=== PATIENT | male | born 1990 | race Caucasian/White ===

== ENCOUNTER 2023-06-27 16:53 | Emergency (ER) | payer OTHER, SELFPAY ==
--- NOTE | ~2023-06-27 | XR_ITS ---
EXAMINATION: XR CHEST CLINICAL INFORMATION: Chest pain, cough and fever COMPARISON: None available. TECHNIQUE: 2 views of the chest were obtained. FINDINGS: No significant abnormality is noted involving the heart, lungs, mediastinum, bony thorax or soft tissues. XR/XR chest 2V IMPRESSION: Unremarkable examination.
--- NOTE | ~2023-06-27 | US_ITS ---
EXAMINATION: US ABDOMEN LIMITED CLINICAL INFORMATION: Right upper quadrant pain. COMPARISON: None available. TECHNIQUE: Real-time imaging of the right upper quadrant abdominal viscera.: Doppler exam used. FINDINGS: PANCREAS: Pancreatic head and body are normal. The tail is obscured by bowel gas. LIVER: Normal. The liver is normal in size. The liver contour is normal. Parenchymal echogenicity is normal. No focal hepatic lesion. There is no intrahepatic biliary duct dilatation seen. GALLBLADDER: Normal. The gallbladder is physiologically distended without evidence of stones, sludge, polyps, wall thickening or pericholecystic fluid. COMMON BILE DUCT: Normal in caliber measuring 0.2 cm in diameter. RIGHT KIDNEY: Normal. No hydronephrosis. No renal calculi or focal parenchymal lesions. The kidney measures 11.2 cm in maximum dimension. FREE FLUID: None. US/US abdomen limited IMPRESSION: Normal ultrasound right upper quadrant.
[2023-06-27 17:21] VITALS: BP 120/82; PULSE 127; RESP 18; TEMP 38.3; O2SAT 99; BMI 25.5
--- NOTE | 2023-06-27 17:23 | ED.GENADULT ---
HPI - General Adult General Chief complaint: Nausea/Vomiting/Diarrhea Stated complaint: fever, vomiting, body aches, weakness Time Seen by Provider: 06/27/23 22:59 Source: patient Mode of arrival: ambulatory Limitations: no limitations History of Present Illness HPI narrative: Patient is a 32-year-old male who presents to the emergency department for evaluation. He reports since last night he has been experiencing body aches, subjective fevers, nausea, 3 episodes of bilious vomiting, multiple episodes of loose watery diarrhea occurring every 1-2 hours. He also reports malodorous urine. He reports a history of similar symptoms in the past that lasted a couple of days before self-resolving. He states it typically occurs on the weekend so he has never sought evaluation as he is able to rest and his symptoms subside. He is requesting to be discharged home and would like a work note, as he feels as though he can rest and things will improve. He denies any known sick contacts. He denies any chest pain, shortness of breath, back pain, hematuria, hematochezia, melena Related Data Allergies Allergy/AdvReac Type Severity Reaction Status Date / Time No Known Allergies Allergy Verified 06/27/23 17:26 Review of Systems Review of Systems: Yes all other systems are reviewed and are negative PMFSH Past Medical History Attestation statement: The following information was validated with the patient. Source: old records reviewed Social History Social History Smoked in Last 30 Days: No Use of substances other than those prescribed or required for medical reasons: No Advance Directives: No Advance Directives Information Provided: No Do you have a plan to hurt others: No Plan Physical Exam ED Vital Signs: Vital Signs - 24 hr 06/27/23 17:21 06/27/23 20:03 06/27/23 23:00 Temperature 101 F H 99.1 F 98.8 F Pulse Rate 127 H 109 H 108 H Respiratory Rate 18 18 20 Blood Pressure 120/82 136/83 118/75 Pulse Oximetry 99 100 99 Oxygen Delivery Method Room Air Room Air Room Air BMI result Body Mass Index 25.5 Appearance: Alert.?Oriented to person, place and time. No acute distress.?Normal affect. Eyes: Pupils equal, round and reactive to light.? ENT: Pharynx normal.?? Neck: Normal inspection.? Neck supple.?? CVS: Heart sounds normal. Normal heart rate and rhythm.? Pulses normal.?? Respiratory: No respiratory distress.? Lung sounds clear to auscultation bilaterally?? Abdomen: Soft with right upper quadrant epigastric tenderness upon palpation. Normoactive bowel sounds. Skin: Skin warm and dry.? Normal skin color.? Extremities: No lower extremity edema.? Neuro: Moves all extremities spontaneously. Sensation intact bilaterally. CN II-XII intact. No focal neuro deficits. Ambulates with normal steady gait. Course Course Course Narrative: RME- 32-year-old male presents for evaluation of cough, flu-like symptoms as well as vomiting. Symptoms started last night. Plan for labs, chest x-ray, viral swabs Medications Administered Discontinued Medications Generic Name Dose Route Start Last Admin Trade Name Freq PRN Reason Stop Dose Admin Acetaminophen 975 mg 06/27/23 17:23 06/27/23 17:26 Acetaminophen 325 Mg Tablet PO 06/27/23 17:24 975 mg ONCE ONE Administration Medical Decision Making Medical Decision Making [facility] Narrative: Patient is a 32-year-old male presenting to emergency department for evaluation of vomiting diarrhea and pain as per HPI. On exam he does have notable tenderness upon palpation to the right upper quadrant and epigastric region. I reviewed labs obtained prior to my assumption of care; no leukocytosis or anemia, no electrolyte derangement, renal function is high normal with no known history of CKD or renal dysfunction, elevated transaminases and total bili with no prior available for comparison, lipase within normal range. He had imaging obtained including a chest x-ray which was unremarkable and a right upper quadrant abdominal ultrasound which was unremarkable. I recommended that he have CT of the abdomen and pelvis for further evaluation given elevated transaminases and his current symptoms/physical exam findings. However declines would like to go home at this time. He reports he needs to get his children home, and he will return tomorrow if he is not feeling better. Patient was advised can not exclude acute intra-abdominal pathology, potential life-threatening illness. He verbalizes understanding of this. He is leaving against medical advice. Differential Diagnosis Differential Diagnoses: The differential diagnosis associated with the presentation includes (Cholecystitis, cholelithiasis, CBD stone/obstruction, enteritis, SBO, viral syndrome) Admission/Observation Consideration of admission/observation: Escalation of care including admission/observation considered (See narrative above) Lab Data [facility] Lab Attestation statement: I reviewed the patient's lab results. (See narrative above) 06/27/23 17:42 06/27/23 17:41 Labs: Lab Results 06/27/23 06/27/23 Range/Units 17:41 17:42 WBC 8.4 (4.8-10.8) X10*3/uL RBC 5.67 (4.60-5.80) X10*6/uL Hgb 17.2 (14.0-18.0) g/dl Hct 48.1 (42.0-52.0) % MCV 84.8 (80.0-98.0) fL MCH 30.3 (27.0-33.0) pg MCHC 35.8 (31.0-36.0) g/dl RDW 11.5 (11.0-16.0) % Plt Count 181 (160-400) X10*3/uL MPV 9.8 (9.4-12.4) fL Immature Gran % (Auto) 0.5 H (0.0-0.4) % Neut % (Auto) 86.1 H (45-73) % Lymph % (Auto) 6.9 L (20-40) % [place] % (Auto) 6.0 (2-11) % Eos % (Auto) 0.1 (0-4) % Baso % (Auto) 0.4 (0-2) % Lymph # (Auto) 0.6 L (1.2-4.9) X10*3/uL [place] # (Auto) 0.5 (0.1-1.2) X10*3/uL Eos # (Auto) 0.0 (0.0-0.4) X10*3/uL Baso # (Auto) 0.0 (0.0-0.2) X10*3/uL Abs Immat Gran (auto) 0.04 H (0.00-0.03) X10*3/uL Absolute Neuts (auto) 7.3 (2.0-8.3) x10*3/uL Absolute Nucleated RBC 0.000 (0.0-0.012) X10*3/uL Nucleated RBC % (auto) 0.0 (0.0-0.2) /100WBC Sodium 137 (135-145) mmol/L Potassium 3.9 (3.3-5.1) mmol/L Chloride 101 (96-108) mmol/L Carbon Dioxide 26 (22-29) mmol/L Anion Gap 14 (12-20) BUN 19 H (9-16) mg/dL Creatinine 1.24 (0.5-1.4) mg/dL Estim Creat Clear Calc 87.4 Estimated GFR > 60 Random Glucose 117 H (60-115) mg/dL Calcium 9.9 (8.4-10.2) mg/dL Total Bilirubin 1.4 H (0.0-1.0) mg/dL AST 32 (5-37) U/L ALT 59 H (0-40) U/L Alkaline Phosphatase 124 H (39-117) U/L Total Protein 8.5 H (6.5-8.0) g/dL Albumin 4.6 (3.5-5.0) g/dL Lipase 22 (8-78) U/L Urine Color Dark Yellow Urine Appearance Clear Urine pH 5.5 (5.0-9.0) Ur Specific Colon >= 1.030 H (1.005-1.025) Urine Protein 30 (1+) H (Neg-Trace) mg/dL Urine Glucose (UA) Negative (Negative) mg/dL Urine Ketones 40 (Negative) mg/dL Urine Blood Negative (Negative) Urine Nitrite Negative (Negative) Ur Leukocyte Esterase Negative (Negative) Urine RBC 0-2 (0-2) /HPF Urine WBC 0-5 (0-5) /HPF Ur Squamous Epith Cells 0-2 (0-2) /HPF Urine Bacteria None Seen (None Seen) Hyaline Casts 0-2 (0-2) /LPF Influenza Type A (PCR) NEGATIVE (Negative) Influenza Type B (PCR) NEGATIVE (Negative) RSV RNA Qual (PCR) NEGATIVE (Negative) SARS-CoV-2 RNA (RT-PCR) NEGATIVE (Negative) Independent Interpretation I performed an independent interpretation of an: Plain X-Ray (No infiltrate or pleural effusion) and Ultrasound (No cholelithiasis) Radiology Impression Discussion of test interpretation with radiology: I have reviewed the radiologist's reading. Radiologist Impression: XR/XR chest 2V IMPRESSION: Unremarkable examination. US/US abdomen limited IMPRESSION: Normal ultrasound right upper quadrant. Tests considered The following testing was considered but not selected: See narrative above Discharge Plan Discharge Clinical Impression: Vomiting and diarrhea Patient Disposition: Left Against Medical Advice Additional Instructions: It was recommended that you remain in the emergency department for further testing including a CT scan of your abdomen. You however declined. Requested to go home. At this time you are leaving against medical advice. As discussed, please return immediately with any new or worsening symptoms or concerns. Stand Alone Forms: Against Medical Advice, Work/School Release Print Language: [place]
[2023-06-27] MEDS: Acetaminophen 325 MG TABLET 975 MG PO (17:26)
[2023-06-27 17:46] LABS: MANUAL DIFF FLAG NO
[2023-06-27 17:48] LABS: Basophils Percent Auto 0.4 % (0-2); Eosinophils Percent Auto 0.1 % (0-4); Hematocrit 48.1 % (42.0-52.0); Hemoglobin 17.2 g/dl (14.0-18.0); Imm Gran Abs Auto 0.04 X10*3/uL (0.00-0.03); Imm Gran Pct Auto 0.5 % (0.0-0.4); Lymphocytes Absolute Auto 0.6 X10*3/uL (1.2-4.9); Lymphocytes Percent Auto 6.9 % (20-40); Mean Corpuscular HGB Conc 35.8 g/dl (31.0-36.0); Mean Corpuscular Hemoglobin 30.3 pg (27.0-33.0); Mean Corpuscular Volume 84.8 fL (80.0-98.0); Mean Platelet Volume 9.8 fL (9.4-12.4); Monocytes Absolute Auto 0.5 X10*3/uL (0.1-1.2); Neutrophils Absolute Auto 7.3 x10*3/uL (2.0-8.3); Neutrophils Percent Auto 86.1 % (45-73); Platelet Count 181 X10*3/uL (160-400); Red Blood Count 5.67 X10*6/uL (4.60-5.80); Red Cell Distribution Width 11.5 % (11.0-16.0); White Blood Count 8.4 X10*3/uL (4.8-10.8)
[2023-06-27 17:50] LABS: Appearance Urine Clear; Color Urine Dark Yellow; Glucose Urine UA Negative (Negative); Leukocyte Esterase Urine Negative (Negative); Nitrite Urine Negative (Negative); PH 5.5 (5.0-9.0); Specific Gravity - Urine >= 1.030 (1.005-1.025); UMIC TRIGGER UACC YES; Urine Blood Negative (Negative); Urine Ketones 40 mg/dL (Negative); Urine Protein 30 (1+) mg/dL (Neg-Trace)
[2023-06-27 17:55] LABS: Bacteria Urine None Seen (None Seen); Hyaline Casts Urine 0-2 /LPF (0-2); RBC Urine 0-2 /HPF (0-2); Squamous Epithelial Cell Urine 0-2 /HPF (0-2); WBC Urine 0-5 /HPF (0-5)
[2023-06-27 18:14] LABS: Alanine Aminotransferase 59 U/L (0-40); Albumin Level 4.6 g/dL (3.5-5.0); Alkaline Phosphatase 124 U/L (39-117); Anion Gap 14 (12-20); Aspartate Amino Transferase 32 U/L (5-37); Bilirubin Total 1.4 mg/dL (0.0-1.0); Blood Urea Nitrogen 19 mg/dL (9-16); Calcium 9.9 mg/dL (8.4-10.2); Carbon Dioxide 26 mmol/L (22-29); Chloride 101 mmol/L (96-108); Creatinine Clr Calc Pharmacy 87.4; Estimated Glomerular Filt Rate > 60; Glucose Random 117 mg/dL (60-115); Lipase 22 U/L (8-78); Potassium 3.9 mmol/L (3.3-5.1); Sodium 137 mmol/L (135-145); Total Protein 8.5 g/dL (6.5-8.0)
[2023-06-27 18:37] LABS: Influenza A PCR NEGATIVE (Negative); Influenza B PCR NEGATIVE (Negative); Resp Syncy Virus RNA Qual PCR NEGATIVE (Negative); SARS COV2 PCR INHOUSE NEGATIVE (Negative)
[2023-06-27 20:03] VITALS: BP 136/83; PULSE 109; RESP 18; TEMP 37.3; O2SAT 100
--- NOTE | 2023-06-27 21:19 | PC.NURSE ---
PT STATES PAIN, NAUSEA NOW RESOLVED. VS IMPROVED WITH TYLENOL. AWAITING ED PROVIDER.
[2023-06-27 23:00] VITALS: BP 118/75; PULSE 108; RESP 20; TEMP 37.1; O2SAT 99
[2023-06-28 00:17] VITALS: BP 118/75; PULSE 108; RESP 20; TEMP 37.1; O2SAT 99
== END 2023-06-28 00:17 | disposition left against medical advice (07) ==
PROVIDERS: Physician Assistant; Emergency Provider Emergency Medicine
DX: R11.2 Nausea with vomiting, unspecified (principal); R10.11 Right upper quadrant pain; R07.9 Chest pain, unspecified; R05.9 Cough, unspecified; R50.9 Fever, unspecified; Z53.29 Procedure and treatment not carried out because of patient's decision for other reasons; Z11.52 Encounter for screening for COVID-19; Z20.828 Contact with and (suspected) exposure to other viral communicable diseases
CPT/HCPCS: 0241U; 36415; 71046; 76705; 80053; 81001; 83690; 85025; 99284

== ENCOUNTER 2024-11-24 22:01 | Emergency (ER) | payer OTHER, SELFPAY ==
--- NOTE | ~2024-11-24 | XR_ITS ---
CLINICAL HISTORY: AMS 1 view chest x-ray Comparison: Chest x-ray from 06/27/2023 Findings: Borderline low lung volumes with mild/minimal atelectasis. No consolidation or effusion. No pneumothorax. Heart size is within normal limits for AP technique. No acute fracture common by one view chest x-ray. IMPRESSION: No consolidation This document has been electronically signed by: Hemant Walter MD on 11/24/2024 23:27:18
[2024-11-24 22:09] LABS: Glucose, Whole Blood 85 mg/dL (60-115)
--- NOTE | 2024-11-24 22:18 | ECG_ITS ---
Test Reason : AMS Blood Pressure : */* mmHG Vent. Rate : 66 BPM Atrial Rate : 66 BPM P-R Int : 160 ms QRS Dur : 88 ms QT Int : 348 ms P-R-T Axes : 58 48 51 degrees QTcB Int : 364 ms Normal sinus rhythm Normal ECG No previous ECGs available Referred By: Kailey Bennett Electronically Signed By: MANUEL MCHUGH
[2024-11-24 22:19] VITALS: BP 132/86; BP 136/84; PULSE 71; PULSE 90; RESP 13; TEMP 36.8; O2SAT 100; O2SAT 99; BMI 25.6
--- NOTE | 2024-11-24 22:22 | ED.GENADULT ---
HPI - General Adult General Chief complaint: General Medical Stated complaint: L side weakness, facial numbness Time Seen by Provider: 11/24/24 22:13 Source: patient and EMS Mode of arrival: EMS Limitations: no limitations History of Present Illness ED Provider: Dr. Kailey Bennett HPI narrative: 34-year-old male with no past medical history presenting with left-sided arm, leg and facial numbness the that began while he was cleaning out his refrigerator. Admits that he played basketball earlier in the night and has not had anything to eat since 3:00 p.m.. Called 911 because he began to feel confused and having difficulty with word finding. Symptoms resolved prior to arrival in the emergency department. No facial droop. Blood sugar for EMS was 106, upon arrival to the emergency department it was 85. Patient denies illness prior to this. He denies fever, chest pain, difficulty breathing, cough or cold-type symptoms, vision changes, abdominal pain, nausea or vomiting, bowel changes, urinary complaints, falls. Does admit to slight headache that he describes as a global headache that is mild. Has not taken anything for pain at home. Denies alcohol, tobacco or illicit substance use today. Related Data Allergies Allergy/AdvReac Type Severity Reaction Status Date / Time No Known Allergies Allergy Verified 11/24/24 22:23 Review of Systems Review of Systems: as per HPI, full review of systems performed and negative but for the above mentioned pertinent positives and negatives. COUNT INCLUDES THE [facility] Social History Social History Smoked in Last 30 Days: No Use of substances other than those prescribed or required for medical reasons: No Advance Directives: No Advance Directives Information Provided: No Do you have a plan to hurt others: No Plan Physical Exam ED Vital Signs: Vital Signs - 24 hr 11/24/24 22:19 11/24/24 23:47 Temperature 98.3 F 97.7 F Pulse Rate 71 73 Respiratory Rate 13 16 Blood Pressure 136/84 115/76 Pulse Oximetry 99 98 Oxygen Delivery Method Room Air Room Air BMI result Body Mass Index 25.6 NIH Stroke Scale Internal: Initial- Upon Arrival Level of Consciousness: Alert Level of Consciousness Questions: Answers both questions correctly Level of Consciousness Commands: Performs both tasks correctly Best Gaze: Normal Visual: No visual loss Facial Palsy: Normal Motor Arm (Right): No drift Motor Arm (Left): No drift Motor Leg (Right): No drift Motor Leg (Left): No drift Limb Ataxia: Absent Sensory: Normal Best Language: No aphasia Dysarthia: Normal Extinction and Inattention: No abnormality Score: 0 Medications Administered Discontinued Medications Generic Name Dose Route Start Last Admin Trade Name Nancy PRN Reason Stop Dose Admin Lactated Ringer's 1,000 mls @ 999 mls/hr 11/24/24 22:18 11/24/24 23:42 Lr IV 11/24/24 23:18 Infused .Q1H1M ONE Infusion Ketorolac Tromethamine 15 mg 11/24/24 22:18 11/24/24 22:30 Ketorolac Tromethamine 15 Mg/Ml Vial IVPUSH 11/24/24 22:19 15 mg ONCE ONE Administration Metoclopramide HCl 10 mg 11/24/24 22:18 11/24/24 22:30 Metoclopramide Hcl 10 Mg/2 Ml Vial IVPUSH 11/24/24 22:19 10 mg ONCE ONE Administration Medical Decision Making Medical Decision Making MDM Narrative: Patient presents today with weakness and tingling. Differential diagnosis includes anemia, electrolyte abnormality, infection, rhabdomyolysis/myositis, neurologic disorders such as Guillain-[place] or myasthenia gravis, CVA, medication side effects, deconditioning, dehydration, among many others. A broad-based workup was initiated based on the patient's history and physical examination. They were watched closely on residential monitor with vital signs that were monitored during the duration of their stay. There are no signs of focal neurological deficit or weakness on exam. Evaluated patient upon arrival to the emergency department while sitting on the EMS stretcher. He has an NIHSS of 0. He was able to ambulate from the EMS stretcher to the [facility] without issue. I did not activate a stroke protocol due to rapidly resolving symptoms and a very normal exam. He has no medical history, does not use stimulants including cocaine or methamphetamines and is extremely low risk. I suspect this is more likely related to his exercising today and not eating enough. 11:36 PM 11/24/2024 (Dr. Kailey Bennett, D.Geraldo.) patient received a migraine cocktail in his currently feeling well. Requesting discharge at this time. Using shared decision making, plan for discharge home to follow-up with primary care and/or specialist. Patient understands and agrees with plan for discharge. Discharged home in stable condition. Differential Diagnosis Differential Diagnoses: The differential diagnosis associated with the presentation includes (As above) Lab Data 11/24/24 22:32 11/24/24 22:32 Labs: Lab Results 11/24/24 11/24/24 11/24/24 Range/Units 22:04 22:32 23:43 WBC 7.8 (4.8-10.8) X10*3/uL RBC 5.23 (4.60-5.80) X10*6/uL Hgb 15.9 (14.0-18.0) g/dl Hct 44.0 (42.0-52.0) % MCV 84.1 (80.0-98.0) fL MCH 30.4 (27.0-33.0) pg MCHC 36.1 H (31.0-36.0) g/dl RDW 11.9 (11.0-16.0) % Plt Count 222 (160-400) X10*3/uL MPV 10.3 (9.4-12.4) fL Immature Gran % (Auto) 0.3 (0.0-0.4) % Neut % (Auto) 55.8 (45-73) % Lymph % (Auto) 34.7 (20-40) % [place] % (Auto) 6.4 (2-11) % Eos % (Auto) 2.2 (0-4) % Baso % (Auto) 0.6 (0-2) % Lymph # (Auto) 2.7 (1.2-4.9) X10*3/uL [place] # (Auto) 0.5 (0.1-1.2) X10*3/uL Eos # (Auto) 0.2 (0.0-0.4) X10*3/uL Baso # (Auto) 0.1 (0.0-0.2) X10*3/uL Abs Immat Gran (auto) 0.02 (0.00-0.03) X10*3/uL Absolute Neuts (auto) 4.4 (2.0-8.3) x10*3/uL Absolute Nucleated RBC 0.000 (0.0-0.012) X10*3/uL Nucleated RBC % (auto) 0.0 (0.0-0.2) /100WBC Sodium 141 (135-145) mmol/L Potassium 3.9 (3.3-5.1) mmol/L Chloride 106 (96-108) mmol/L Carbon Dioxide 25 (22-29) mmol/L Anion Gap 14 (12-20) BUN 14 (9-16) mg/dL Creatinine 1.02 (0.5-1.4) mg/dL Estim Creat Clear Calc 107.6 Estimated GFR > 60 POC Glucose 85 77 (60-115) mg/dL Random Glucose 85 (60-115) mg/dL Calcium 9.9 (8.4-10.2) mg/dL Magnesium 2.0 (1.6-2.6) mg/dL Total Bilirubin 1.1 H (0.0-1.0) mg/dL AST 38 H (5-37) U/L ALT 50 H (0-40) U/L Alkaline Phosphatase 162 H (39-117) U/L Total Creatine Kinase 220 H (38-174) U/L Total Protein 8.1 H (6.5-8.0) g/dL Albumin 4.9 (3.5-5.0) g/dL Ethyl Alcohol < 10 mg/dL Discharge Plan Discharge Clinical Impression: Acute headache, Transient weakness of left lower extremity Patient Disposition: Home, Self-Care Instructions: Acute Headache (ED), Paresthesia (ED) Additional Instructions: Try to stay well hydrated and drink plenty of fluids over the next several days. Rest as much as possible. Do not play any sports until you are feeling 100% improved. Return to the emergency department if you develop any new or worsening symptoms including: Worsening headaches, fevers greater than 100?, chest pain, difficulty breathing, passing out, any new symptom that concerns you. Call 911 with any medical emergency. Print Language: [place]ian
[2024-11-24] MEDS: Lactated Ringers 1,000 ML 999 ML IV (22:30)
--- NOTE | 2024-11-24 22:34 | PC.NURSE ---
EkGs competed, labs collected and sent, medicated per mar.
[2024-11-24 22:35] LABS: MANUAL DIFF FLAG NO
[2024-11-24 22:39] LABS: Hematocrit 44.0 % (42.0-52.0); Hemoglobin 15.9 g/dl (14.0-18.0); Imm Gran Abs Auto 0.02 X10*3/uL (0.00-0.03); Imm Gran Pct Auto 0.3 % (0.0-0.4); Lymphocytes Absolute Auto 2.7 X10*3/uL (1.2-4.9); Mean Corpuscular HGB Conc 36.1 g/dl (31.0-36.0); Mean Corpuscular Hemoglobin 30.4 pg (27.0-33.0); Mean Corpuscular Volume 84.1 fL (80.0-98.0); NRBC Abs Auto 0.000 X10*3/uL (0.0-0.012); NRBC Pct Auto 0.0 /100WBC (0.0-0.2); Platelet Count 222 X10*3/uL (160-400); Red Blood Count 5.23 X10*6/uL (4.60-5.80); White Blood Count 7.8 X10*3/uL (4.8-10.8)
[2024-11-24 22:59] LABS: Alanine Aminotransferase 50 U/L (0-40); Albumin Level 4.9 g/dL (3.5-5.0); Alkaline Phosphatase 162 U/L (39-117); Anion Gap 14 (12-20); Aspartate Amino Transferase 38 U/L (5-37); Blood Urea Nitrogen 14 mg/dL (9-16); Calcium 9.9 mg/dL (8.4-10.2); Carbon Dioxide 25 mmol/L (22-29); Chloride 106 mmol/L (96-108); Creatinine Clr Calc Pharmacy 107.6; Estimated Glomerular Filt Rate > 60; Magnesium 2.0 mg/dL (1.6-2.6); Potassium 3.9 mmol/L (3.3-5.1); Sodium 141 mmol/L (135-145); Total Protein 8.1 g/dL (6.5-8.0)
--- NOTE | 2024-11-24 23:29 | PC.NURSE ---
Pt requested to go home, notified provider, po challenge per provider.
--- NOTE | 2024-11-24 23:41 | PC.NURSE ---
po challenge tolerated well, poc taken,
[2024-11-24 23:47] VITALS: BP 115/76; PULSE 73; RESP 16; TEMP 36.5; O2SAT 98
[2024-11-24 23:50] LABS: Glucose, Whole Blood 77 mg/dL (60-115)
--- NOTE | 2024-11-25 00:06 | PC.NURSE ---
Reviewed discharge instruction with pt. pt verbalized understanding, no sign of distress, pt discharge with a steady gait.
[2024-11-25 00:07] VITALS: BP 115/76; PULSE 73; RESP 16; TEMP 36.5; O2SAT 98
== END 2024-11-25 00:07 | disposition home or self-care (01) ==
PROVIDERS: Emergency Provider Emergency Medicine
DX: R51.9 Headache, unspecified (principal); R53.1 Weakness; R20.0 Anesthesia of skin
CPT/HCPCS: 36415; 71045; 80053; 80307; 82550; 82947; 83735; 85025; 93005; 96361; 96374; 96375; 99284; 99285; J1885; J2765; J7120

== ENCOUNTER → 2024-11-24 22:18 | Outpatient (BNV) | payer SELFPAY | PROVIDERS: Emergency Provider Emergency Medicine; Visit Provider Radiology Neuroradiology | DX: R41.82 Altered mental status, unspecified (principal) | CPT/HCPCS: 71045 ==

== ENCOUNTER → 2024-11-24 22:18 | Outpatient (BNV) | payer SELFPAY | PROVIDERS: Emergency Provider Emergency Medicine; Visit Provider Internal Medicine | DX: R41.82 Altered mental status, unspecified (principal) | CPT/HCPCS: 93010 ==